=== PATIENT | female | born 1985 | race Caucasian/White ===

== ENCOUNTER 2017-09-22 17:59 | Emergency (ER) | payer OTHER ==
[2017-09-22 17:59] VITALS: BMI 27.3
[2017-09-22 18:09] VITALS: BP 123/82; PULSE 90; RESP 16; TEMP 98.8; O2SAT 98
--- NOTE | 2017-09-22 18:30 | C.PDOC ---
History Of Present Illness 32 yo female come in for evaluation of open wound over umbilicus for past week. Pt sts, " had piercing that broke and I want my wound to be closed with sutures now". Otherwise, pt denies fever, chills, swelling, redness over wound or discharges. Ambulate to Ed for evaluation, not in any apparent distress. Time Seen by Provider: 09/22/17 18:17 Chief Complaint (Nursing): Abnormal Skin Integrity History Per: Patient Past Medical History Reviewed: Historical Data, Nursing Documentation, Vital Signs Vital Signs: Last Vital Signs Temp 98.8 F 09/22/17 18:07 Pulse 90 09/22/17 18:07 Resp 16 09/22/17 18:07 BP 123/82 09/22/17 18:07 Pulse Ox 98 09/22/17 18:33 - Medical History PMH: No Chronic Diseases Surgical History: No Surg Hx Family History: States: Unknown Family Hx - Social History Hx Alcohol Use: Yes Hx Substance Use: No - Immunization History Hx Tetanus Toxoid Vaccination: Yes Hx Influenza Vaccination: No Hx Pneumococcal Vaccination: No Review Of Systems Except As Marked, All Systems Reviewed And Found Negative. Constitutional: Negative for: Fever, Chills Gastrointestinal: Negative for: Nausea, Vomiting, Abdominal Pain, Diarrhea Skin: Positive for: Lesions Neurological: Negative for: Weakness, Numbness Physical Exam - Physical Exam Appears: Well, Non-toxic, No Acute Distress Skin: Normal Color, Warm, Other (well healed wound just above umbilicus with granulation tissue. No edema, no erythema, no discharges, no proximal streaking. ) ED Course And Treatment O2 Sat by Pulse Oximetry: 98 Progress Note: On re-evaluation, pt is afebrile, hemodynamicaly stable. Non- toxic. Ambulatory in ED with stable gait. ENT: No acute findings. Abd: benign , (-) guarding, (-) rebound. Neurologicaly intact. Skin repaired with skin adhesive. Pt advised on course of ds. ref. to f/u with PMD in 2-3 days for re- eval. Return to ED if any worsening or new chanegs. Disposition Counseled Patient/Family Regarding: Diagnosis, Need For Followup - Disposition Referrals: [facility] [Outside] Disposition: HOME/ ROUTINE Disposition Time: 18:28 Condition: STABLE Additional Instructions: Keep wound dry for 3-4 days Follow up with PMD as need for further evaluation and tx Instructions: Laceration Repair With Glue (DC) Forms: [employer] (Slovenian) - Clinical Impression Clinical Impression: Laceration
== END 2017-09-22 18:35 | disposition home or self-care (01) ==
LOC: C.ER 17:59
DX: S31.115A Laceration without foreign body of abdominal wall, periumbilic region without penetration into peritoneal cavity, initial encounter (principal); X58.XXXA Exposure to other specified factors, initial encounter